=== PATIENT | female | born 1985 | race Caucasian/White ===

== ENCOUNTER 2017-11-11 07:28 | Day surgery (SDC) | payer MEDICAID ==
[~2017-11-11 07:28] MED LIST: ATROPINE 1 MG/10 ML SYRINGE IV; CEFAZOLIN 1 GM INJ; CEFAZOLIN 2 GM/50 ML (PMX) 50 ML IVPB; DIPHENHYDRAMINE 50 MG INJ IV; EPHEDrine SULFATE 50 MG/5 ML SYG IV; FENTAnyl 50 MCG/ML VIAL IV; HYDROmorphONE (0.2 MG/ML) 10ML SYG IV; LABETALOL HCL 20MG INJ IV; LIDOCAINE 100 MG SYRINGE; MEPERIDINE 25 MG INJ IV; MIDAZOLAM 1 MG/ML 2 ML INJ IV; ONDANSETRON 4 MG INJ IV; OXYCODONE/ACETAMINOPHEN (5/325) TAB PO; hydrALAzine 20 MG INJ IV; morphine (1 MG/ML) 10ML SYRINGE IV
[2017-11-11] MEDS ORDERED: NEOSTIGMINE 3 MG/3 ML SYRINGE (08:57)
[2017-11-11] MEDS ORDERED: FENTAnyl 50 MCG/ML VIAL (08:57)
[2017-11-11] MEDS ORDERED: PROPOFOL 20 ML (08:57)
[2017-11-11] MEDS ORDERED: GLYCOPYRROLATE 0.4 MG INJ (08:57)
[2017-11-11] MEDS ORDERED: MIDAZOLAM 1 MG/ML 2 ML INJ (08:57)
[2017-11-11] MEDS ORDERED: ROCURONIUM 50 MG INJ (08:57)
[2017-11-11] MEDS ORDERED: KETOROLAC 30 MG INJ (09:00)
[2017-11-11] MEDS ORDERED: ONDANSETRON 4 MG INJ (09:01)
[2017-11-11] MEDS ORDERED: FLUMAZENIL 0.5 MG INJ (09:34)
== END 2017-11-11 11:45 | disposition home or self-care (01) ==
LOC: SDS 07:28
DX: Z30.2 Encounter for sterilization (principal)
CPT/HCPCS: 58565; 84703